=== PATIENT | male | born 1970 | race African-American/Black ===

== ENCOUNTER 2017-04-06 08:25 | Emergency (ER) | payer SELFPAY ==
[~2017-04-06] VITALS: Ht 170.2 cm; Wt 70.0 kg
[2017-04-06 08:36] VITALS: Ht 170.2 cm; Wt 70.0 kg
[2017-04-06] MEDS ORDERED: LORAZEPAM 2 MG INJ ONE (08:40)
[2017-04-06] MEDS ORDERED: SOD CHLORIDE 0.9% 1,000 ML IV STA (08:45)
[2017-04-06] MEDS ORDERED: LORAZEPAM 2 MG INJ IV STA (08:45)
--- NOTE | 2017-04-06 08:51 | ERD ---
ER Documentation Chief Complaint Chief Complaint Seizure HPI This is a 46-year-old male with an unknown past medical history who is presenting after a reported seizure. A bystander reportedly called an ambulance after a witnessed episode of generalized tonic-clonic shaking. The shaking episode was not witnessed by the EMS crew. It is unclear if the patient hit his head. The patient did bite his tongue and does have blood in his oral airway. The patient is currently postictal and unable to provide any history. He does continues to say that he is thirsty and is extremely agitated. The patient's history is limited secondary to patient's altered mental status. ROS Limited secondary to altered mentation. Medications Home Meds No Active Prescriptions or Reported Meds Allergies Allergies: Coded Allergies: No Known Allergy (Unverified , 04/06/17) PMhx/Soc Limited secondary to altered mentation. History of Surgery: No Hx Neurological Disorder: No Hx Respiratory Disorders: No Hx Cardiac Disorders: No Hx Psychiatric Problems: No Hx Miscellaneous Medical Probl: No Hx Alcohol Use: Yes Hx Substance Use: No Hx Tobacco Use: No FmHx Family History: No coronary disease, No diabetes Physical Exam Vitals Vital Signs Date Time Temp Pulse Resp B/P Pulse Ox O2 Delivery O2 Flow Rate FiO2 04/06/17 08:36 97.6 88 16 135/79 99 Physical Exam Const: No apparent distress, well-developed, well-nourished Head: Normocephalic, Atraumatic Eyes: Normal Conjunctiva. Extraocular movements intact. Pupils equal, round and reactive to light ENT: Normal External Ears, Nose. Small tongue laceration with dried blood in the oral airway. No active bleeding. Neck: Full range of motion. No meningismus. Resp: Clear to auscultation bilaterally, No wheezes, rales or rhonchi Cardio: Regular rate and rhythm. No murmurs, rubs or gallops Abd: Soft, non tender, non distended. Normal bowel sounds Skin: No petechiae or rashes Back: No midline tenderness. No CVA tenderness Ext: No cyanosis, or edema Neur: Awake and alert, oriented 0. GCS 14. No facial droop. Moves all extremities spontaneously and to pain. Psych: Agitated Result Diagram: 04/06/17 0837 04/06/1737 Results 24 hrs Laboratory Tests Test 04/06/17 08:37 04/06/17 09:05 White Blood Count 10.710^3/ul Red Blood Count 3.8610^6/ul Hemoglobin 11.2g/dl Hematocrit 32.4% Mean Corpuscular Volume 83.9fl Mean Corpuscular Hemoglobin 29.0pg Mean Corpuscular Hemoglobin Concent 34.6g/dl Red Cell Distribution Width 12.6% Platelet Count 75659^3/UL Mean Platelet Volume 10.6fl Neutrophils % 54.5% Lymphocytes % 36.5% Monocytes % 8.1% Eosinophils % 0.5% Basophils % 0.1% Nucleated Red Blood Cells % 0.0/100WBC Neutrophils # 5.810^3/ul Lymphocytes # 3.910^3/ul Monocytes # 0.910^3/ul Eosinophils # 0.110^3/ul Basophils # 0.010^3/ul Nucleated Red Blood Cells # 0.010^3/ul Sodium Level 140mmol/L Potassium Level 4.2mmol/L Chloride Level 97mmol/L Carbon Dioxide Level 12mmol/L Anion Gap 35 Blood Urea Nitrogen 21mg/dl Creatinine 1.82mg/dl Glucose Level 134mg/dl Calcium Level 9.6mg/dl Bedside Glucose 139mg/dL Current Medications Medications (Trade) Dose Ordered Sig/Nomi Route PRN Reason Start Time Stop Time Status Last Admin Dose Admin Sodium Chloride (NS) 1,000 ml @ 1,000 mls/hr Q1H STAT IV 04/06/17 08:45 04/06/17 09:44 DC 04/06/17 08:55 Lorazepam (Ativan) 2 mg ONCE STAT IV 04/06/17 08:45 04/06/17 08:47 DC 04/06/17 08:54 Procedures/[facility] The patient's presentation warrants further investigation. The patient has reports of a seizure. A seizure workup will be performed. The patient's physical exam does indicate a postictal state with biting of the tongue during his seizure. The patient is currently confused, but his exam is otherwise reassuring. The patient is mildly tachycardic. He will receive IV fluids. As we do not know if he hit his head or not, I will also obtain a CT scan of his head. LABS The patient's blood work was obtained and reviewed. The patient's CBC shows no leukocytosis and no left shift. The patient is afebrile and does not appear systemically ill. I do not suspect a systemic infection. The patient is mildly anemic today, which does not need to be emergently treated. The patient's platelet count is unremarkable. The patient's CMP shows a fairly significant anion gap metabolic acidosis as well as acute kidney injury. Acidosis could be related to a possible seizure that occurred today. It is unclear exactly why the patient has an acute kidney injury today. The patient reports urinating normally and not having a history of this. The patient was given IV fluids in the emergency department. TREATMENT/DISPOSITION The patient's symptoms are consistent with a seizure. It is unclear exactly what happened, as the patient does not recall the events of today. The patient was observed in the emergency department until he returned to normal mentation. The patient did not want to be admitted to the hospital for anything. The patient did not care that his kidney function was a little low. The risks of being discharged with acute kidney injury were discussed with the patient, but the patient decided to leave AGAINST MEDICAL ADVICE anyway. Discharge papers were printed for the patient, but he left prior to receiving these papers. The patient is alert and oriented 4. He is ambulatory without issue. He has capacity to make this decision. The patient also had a partial dental avulsion, which appears to be where the bleeding was coming from. The patient understands the need to follow-up with the dentist within 24 hours. The patient will need follow-up with his primary care physician in 2-3 days. The patient will be given strict precautions with which to return to the emergency department. The patient's blood pressure was elevated at greater than 120/80 while in the emergency department. The patient was otherwise stable with no evidence of hypertensive urgency or emergency or end organ damage. The patient does not require admission for blood pressure control. I have discussed with the patient the risks of hypertension. I have advised the patient to follow up with the primary care physician for outpatient monitoring and treatment for hypertension in 2-3 days. I have instructed the patient to return to the ER for any new or worsening symptoms including chest pain, shortness of breath, headache, blurred vision, confusion, nausea, vomiting or LOC. Disclaimer: Inadvertent spelling and grammatical errors are likely due to EHR/ dictation software use and do not reflect on the overall quality of patient care. Note that the electronic time recorded on this note does not necessarily reflect the actual time of the patient encounter. Departure Diagnosis: Primary Impression: Seizure Additional Impressions: Avulsed tooth Encounter type: initial encounter Qualified Code: S03.2XXA - Tooth avulsion , initial encounter High anion gap metabolic acidosis Acute kidney injury Facial trauma Encounter type: initial encounter Qualified Code: S09.93XA - Facial injury, initial encounter Condition: NANCY Butterfield MD Apr 06, 2017 08:51
[2017-04-06 09:18] LABS: BASOPHILS % 0.1 % (0.0-2.0); EOSINOPHILS # 0.1 10^3/ul (0.0-0.5); EOSINOPHILS % 0.5 % (0.0-7.0); HEMATOCRIT 32.4 % (42.0-52.0); HEMOGLOBIN 11.2 g/dl (14.0-18.0); LYMPHOCYTES # 3.9 10^3/ul (0.8-2.9); LYMPHOCYTES % 36.5 % (15.0-51.0); MEAN CORPUSCULAR HGB CONC 34.6 g/dl (32.0-37.0); MEAN CORPUSCULAR VOLUME 83.9 fl (82.0-101.0); MEAN PLATELET VOLUME 10.6 fl (7.4-10.4); MONOCYTE # 0.9 10^3/ul (0.3-0.9); MONOCYTES % 8.1 % (0.0-11.0); NEUTROPHIL # 5.8 10^3/ul (1.6-7.5); NEUTROPHILS % 54.5 % (39.0-77.0); PLATELET COUNT 242 10^3/UL (140-415); RED BLOOD COUNT 3.86 10^6/ul (4.70-6.10); RED CELL DISTRIBUTION WIDTH 12.6 % (11.5-14.5); WHITE BLOOD COUNT 10.7 10^3/ul (4.8-10.8)
[2017-04-06 09:44] LABS: CALCIUM 9.6 mg/dl (8.4-10.2); CREATININE 1.82 mg/dl (0.61-1.24); POTASSIUM 4.2 mmol/L (3.5-5.1)
== END 2017-04-06 11:20 | disposition left against medical advice (07) ==
LOC: EDBD 08:25 → E/R 08:25
DX: R56.9 Unspecified convulsions (principal); R40.2252 Coma scale, best verbal response, oriented, at arrival to emergency department; S03.2XXA Dislocation of tooth, initial encounter; E87.2 Acidosis; N17.9 Acute kidney failure, unspecified; S09.93XA Unspecified injury of face, initial encounter; R40.2142 Coma scale, eyes open, spontaneous, at arrival to emergency department; R40.2362 Coma scale, best motor response, obeys commands, at arrival to emergency department; X58.XXXA Exposure to other specified factors, initial encounter; Y92.9 Unspecified place or not applicable
CPT/HCPCS: 36415; 80048; 82962; 85025; 93005; 96374; 99284; J2060; J7030